=== PATIENT | male | born 1970 | race Caucasian/White ===

== ENCOUNTER → 2020-11-10 | Outpatient (CLI) | payer OTHER ==
[~2020-11-10] MED LIST: CEPH500 PO; HYDACE5 PO; Indomethacin50 MG PO; LISI10 PO; LISI20; LISI20 PO; MECL25 PO; PROP10 PO; PROP40; PROP40 PO
[2020-11-10 14:31] LABS: Alanine Aminotransfer (ALT/SGP 76 U/L (12-78); Albumin, Blood 3.8 g/dL (3.4-5.0); Alk Phos 44 U/L (50-136); Anion Gap 5 mmol/L (6-16); Aspartate Aminotrans (AST/SGOT 23 U/L (12-37); Bilirubin, Total 0.6 mg/dL (0.1-1.0); Blood Urea Nitrogen 15 mg/dL (8-24); Bun/Creatinine Ratio 13.5 (12.0-20.0); CO2, Blood 30 mmol/L (21-32); Calcium, Blood 9.6 mg/dL (8.5-10.1); Chloride, Blood 103 mmol/L (98-108); Creatinine, Blood 1.11 mg/dL (0.60-1.20); Globulin, Blood 3.7 g/dL (2.2-4.0); Glomerular Filtration Rate >60 (60-); Glucose, Blood 135 mg/dL (70-99); Potassium, Blood 4.4 mmol/L (3.5-5.5); Sodium, Blood 138 mmol/L (136-145); Total Protein, Blood 7.5 g/dL (6.4-8.2)
[2020-11-10 16:13] LABS: BASOPHILS ABSOLUTE AUTO 0.05 K/mm3 (0.00-0.23); BASOPHILS PERCENT AUTO 1 % (0-2); EOSINOPHILS ABSOLUTE AUTO 0.18 K/mm3 (0.00-0.68); EOSINOPHILS PERCENT AUTO 2 % (0-6); Hematocrit 45.5 % (37.0-53.0); Hemoglobin 16.4 g/dL (13.5-17.5); IMMATURE GRAN ABSOLUTE AUTO 0.02 K/mm3 (0.00-0.10); IMMATURE GRAN PERCENT AUTO 0 % (0-1); LYMPHOCYTES ABSOLUTE AUTO 2.39 K/mm3 (0.84-5.20); LYMPHOCYTES PERCENT AUTO 31 % (21-46); MONOCYTES ABSOLUTE AUTO 0.63 K/mm3 (0.16-1.47); MONOCYTES PERCENT AUTO 8 % (4-13); Mean Corpuscular HGB 32.3 pg (26.0-34.0); Mean Corpuscular Volume 90 fL (80-100); Mean Platelet Volume 9.1 fL (9.1-12.4); NEUTROPHILS ABSOLUTE AUTO 4.56 K/mm3 (1.96-9.15); NEUTROPHILS PERCENT AUTO 58 % (41-73); Platelet Count 309 K/mm3 (150-400); RDW Standard Deviation 39.2 fL (35.1-46.3); Red Blood Cell Count 5.08 M/mm3 (4.30-5.90); White Blood Cell Count 7.83 K/mm3 (4.00-11.30)
== END | disposition home or self-care (01) ==
LOC: LAB 14:12 → LAB SHORT 14:12
PROVIDERS: Family Medicine
DX: M54.2 Cervicalgia (principal); R59.0 Localized enlarged lymph nodes; R42 Dizziness and giddiness
CPT/HCPCS: 80053; 85025

== ENCOUNTER 2023-04-17 08:30 | Inpatient (IN) | payer BC, OTHER ==
[~2023-04-17] VITALS: Ht 177.8 cm; Wt 158.8 kg
[2023-04-17] MEDS ORDERED: Inderal80 MG PO (08:54)
[2023-04-17] MEDS ORDERED: Acetaminophen 500 MG Tab PO ONE (09:15)
[2023-04-17] MEDS ORDERED: Ketorolac Tromethamine 30mg Vial IV ONE (09:15)
[2023-04-17 09:18] LABS: BASOPHILS ABSOLUTE AUTO 0.06 K/mm3 (0.00-0.23); BASOPHILS PERCENT AUTO 1 % (0-2); EOSINOPHILS PERCENT AUTO 2 % (0-6); Hematocrit 43.6 % (37.0-53.0); Hemoglobin 15.8 g/dL (13.5-17.5); IMMATURE GRAN ABSOLUTE AUTO 0.02 K/mm3 (0.00-0.10); IMMATURE GRAN PERCENT AUTO 0 % (0-1); LYMPHOCYTES ABSOLUTE AUTO 2.53 K/mm3 (0.84-5.20); LYMPHOCYTES PERCENT AUTO 30 % (21-46); MONOCYTES ABSOLUTE AUTO 0.65 K/mm3 (0.16-1.47); MONOCYTES PERCENT AUTO 8 % (4-13); Mean Corpuscular HGB 31.9 pg (26.0-34.0); Mean Corpuscular HGB Conc 36.2 g/dL (31.5-36.5); Mean Corpuscular Volume 88 fL (80-100); Mean Platelet Volume 8.8 fL (9.1-12.4); NEUTROPHILS PERCENT AUTO 59 % (41-73); Platelet Count 280 K/mm3 (150-400); RDW Coefficient Variation 12.1 % (11.7-14.2); RDW Standard Deviation 38.3 fL (35.1-46.3); Red Blood Cell Count 4.95 M/mm3 (4.30-5.90); White Blood Cell Count 8.36 K/mm3 (4.00-11.30)
[2023-04-17] MEDS ORDERED: Methocarbamol 500 MG Tab PO ONE (09:20)
[2023-04-17 09:27] LABS: Magnesium, Blood 2.4 mg/dL (1.6-2.4)
[2023-04-17 09:28] LABS: Albumin, Blood 3.7 g/dL (3.4-5.0); Albumin/Globulin Ratio 1.1 (0.8-1.8); Bilirubin, Total 0.5 mg/dL (0.1-1.0); Globulin, Blood 3.5 g/dL (2.2-4.0); Potassium, Blood 4.3 mmol/L (3.5-5.5); Total Protein, Blood 7.2 g/dL (6.4-8.2)
[2023-04-17] MEDS ORDERED: Aspirin 325 MG Tab PO ONE (10:00)
[2023-04-17] MEDS ORDERED: Nitroglycerin 1 INCH/GM PKT TOP ONE (10:10)
[2023-04-17] MEDS ORDERED: Ondansetron HCl 2 MG / ML 2ML Vial IV PRN (10:55)
[2023-04-17] MEDS ORDERED: Acetaminophen 325 MG TABLET PO PRN (10:55)
[2023-04-17] MEDS ORDERED: FLU VACC QS2023-24(6MOS UP)/PF 60 MCG/0.5 ML SYRINGE IM PRN (11:00)
[2023-04-17] MEDS ORDERED: FentaNYL Citrate 50 MCG/ML 2 ML Injection IV PRN (11:00)
[2023-04-17 11:26] LABS: Anti-Xa UFH, PHA Monitoring <0.10 IU/mL; International Normalized Ratio 0.98; Prothrombin Time Results 10.3 Sec (9.7-11.5)
[2023-04-17] MEDS ORDERED: Heparin Sodium 5000 Units/ML 1ML MDV IV ONE ×2 (11:35→19:05)
[2023-04-17] MEDS ORDERED: Heparin Sodium,Porcine/0.5 NS 500 ML IV SCH (11:35)
[2023-04-17] MEDS ORDERED: Atorvastatin 40 MG Tab PO SCH (13:00)
[2023-04-17 13:27] VITALS: BP 156/96
--- NOTE | 2023-04-17 13:30 | NUR ---
ASSUMED CARE: PT ARRIVED FROM ED WITH HEPARIN GTT IN PLACE. DOSE CONFIRMED WITH SECOND NURSE AND ORDERS. PT WAS NSR ON TELE, DENIES CHEST PAIN BUT SOME PRESSURE. DR WEATHERS AWARE AND STATES PT NEEDS TO BE NPO AT [facility] FOR PROCEDURE WITH DR MARIE TOMORROW. FAMILY AT BEDSIDE. CALL LIGHT IN REACH.
[2023-04-17 15:35] VITALS: BP 135/88
--- NOTE | 2023-04-17 17:51 | NUR ---
SHIFT SUMMARY: PT STATES SOME CHEST PRESSURE BUT DENIES CHEST PAIN T/O DAY. HEPARIN GTT RUNNING. PLANS FOR CARDIAC CATH TOMORROW. FAMILY AT BEDSIDE TODAY AND HAVE BEEN UPDATED. NO ACUTE NEEDS OR CONCERNS AT THIS TIME.
[2023-04-17 19:33] VITALS: BP 130/93
[2023-04-17 23:39] VITALS: BP 120/79
[2023-04-18] VITALS (38 sets, daily range): BP systolic 97–201; BP diastolic 63–121
[2023-04-18] MEDS ORDERED: Nitroglycerin 1 INCH/GM PKT TOP PRN (01:00)
--- NOTE | 2023-04-18 01:34 | NUR ---
ASSUMPTION OF CARE AFTER RECEIVING REPORT FROM LANCE RN, THIS RN ASSUMED CARE AT APPROX 1915. DURING INITIAL ENCOUNTER, PATIENT ALERT, WATCHING TV IN BED. IS ALERT AND ORIENTED X4. COOPERATIVE WITH CARE, COMMUNICATES NEEDS EFFECTIVELY. TELEMETRY SHOWING SINUS 70s. BP STABLE. REPORTS INTERMITTENT CHEST PAIN, PRESSURE THAT IS NONRADIATING. AT APPROX 0030, PATIENT REPORTED INCREASED CHEST PAIN, PRESSURE, RADIATING FROM HIS CHEST UP TO L SIDE OF NECK. DESCRIBED "SIMILAR TO IN ER." MD BAIRD CONTACTED. ORDER IN PLACE FOR REPEAT EKG, TROPONIN LAB, AND NITRO PASTE. EKG AND LAB OBTAINED. NITRO PASTE APPLIED PER EMAR, PATIENT BEGINNING TO REPORT SOME RELIEF. IS ON ROOM AIR, SATs >90%. RESPIRATIONS EVEN, UNLABORED. IS INDEPENDENT WITH ADLs. CALLS FOR ASSIST NEEDED. CALL LIGHT IN REACH.
[2023-04-18] MEDS ORDERED: Dose Adjust by Pharmacy XX STA ×2 (01:45→20:38)
[2023-04-18] MEDS ORDERED: Heparin Sodium 5000 Units/ML 1ML MDV IV ONE (01:50)
[2023-04-18 01:52] LABS: Anion Gap 4 mmol/L (6-16); Blood Urea Nitrogen 11 mg/dL (8-24); Bun/Creatinine Ratio 10.1 (12.0-20.0); CHOL/HDL RATIO 6.5; CO2, Blood 28 mmol/L (21-32); Calcium, Blood 8.8 mg/dL (8.5-10.1); Chloride, Blood 105 mmol/L (98-108); Cholesterol 189 mg/dL (50-200); Creatinine, Blood 1.09 mg/dL (0.60-1.20); Glomerular Filtration Rate 82 (60-); Glucose, Blood 166 mg/dL (70-99); HDL Cholesterol 29 mg/dL (>39); LDL/HDL RATIO 2.8; Low Density Lipoprotein Chol 82 mg/dL (0-110); Potassium, Blood 3.8 mmol/L (3.5-5.5); Sodium, Blood 137 mmol/L (136-145); Triglycerides 391 mg/dL (30-160); Very Low Density Lipoprot Chol 78 mg/dL (6-32)
--- NOTE | 2023-04-18 05:19 | NUR ---
SHIFT SUMMARY: NO ACUTE CHANGES SINCE ASSUMPTION OF CARE NOTE. TELEMETRY SHOWING SINUS 60s. BP STABLE, SBP 120s-130s. NO FURTHER EPISODES OF INCREASED CHEST PAIN, PRESSURE (SEE PREVIOUS NOTE) WITH ADMINISTERED NITRO PASTE. HEPARIN GTT INFUSING PER EMAR. NPO SINCE MIDNIGHT FOR ANGIOGRAM TODAY. PLACED ON 2L VIA NASAL CANNULA FOR COMFORT. TOLERATING ROOM AIR, SATs >90%. RESPIRATIONS EVEN, UNLABORED. INDEPENDENT IN ROOM, WITH ADLs. VOIDING. NO BM THIS SHIFT. CALL LIGHT IN REACH.
[2023-04-18] MEDS ORDERED: Pantoprazole Sodium 20 MG Tab PO SCH (06:00)
[2023-04-18] MEDS ORDERED: Heparin Sodium 1000 Units/ML 10ML MDV ONE ×3 (06:26→07:47)
[2023-04-18] MEDS ORDERED: NS 250 ML IV ONE (06:26)
[2023-04-18] MEDS ORDERED: NS 1,000 ML IV ONE ×2 (06:26→06:44)
[2023-04-18] MEDS ORDERED: NiCARdipine HCL 1,000 MCG/5 ML SYR ONE (06:27)
[2023-04-18] MEDS ORDERED: Nitroglycerin 2 MG/20 ML BTL ONE (06:27)
--- NOTE | 2023-04-18 06:37 | NUR ---
PATIENT TRANSFERRED OFF UNIT VIA BED FOR SCHEDULED ANGIOGRAM
[2023-04-18] MEDS ORDERED: Midazolam HCl 1MG / ML 2ML Vial ONE ×3 (06:44→07:50)
[2023-04-18] MEDS ORDERED: FentaNYL Citrate 50 MCG/ML 2 ML Injection ONE ×2 (06:44→07:50)
[2023-04-18] MEDS ORDERED: Aspirin 81 MG Chew ONE (06:53)
[2023-04-18] MEDS ORDERED: Ticagrelor 90 MG TABLET ONE (07:24)
--- NOTE | 2023-04-18 08:25 | NUR ---
PT ARRIVES TO ICU 1 FROM [facility] AFTER PCI. PT IS A/O X4. DENIES CP OR PRESSURE, SOB, N/V. PT IS ON NITRO GTT AT 30MCG/MIN. TR BAND TO R RADIAL SITE INFLATED, STABLE, NO SIGN OF HEMATOMA OR BLEEDING. PALPABLE RADIAL PULSE DISTAL AND SPO2 PROBE TO R INDEX FINGER WITH SPO2 GREAT THAN 90% AND GOOD PLETH. NO SIGN OF DISTESS.
[2023-04-18] MEDS ORDERED: Aspirin 81 MG Chew PO SCH (09:00)
[2023-04-18] MEDS ORDERED: Lisinopril 20 MG Tab PO SCH (13:10)
[2023-04-18] MEDS ORDERED: Propranolol HCL 20 MG TAB PO SCH (13:15)
--- NOTE | 2023-04-18 18:30 | NUR ---
SUMMARY HAD TITRATED NITRO GTT OFF AT 1130. ABOUT AN HOUR LATER PT STATES "I JUST DON'T FEEL GOOD." STATES HE FELT DIZZY AND FLUSHED. TURNED NITRO BACK ON AND SPOKE WITH DR. MARIE. DR. MARIE ORDERED PROPRANOLOL AND LISINOPRIL. AN HOUR AFTER THOSE WERE GIVEN THE NITRO GTT WAS STOPPED. PT HAS NOT HAD ANOTHER EPISODE OF DIZZINESS OR FLUSHING. NOW STATING HE FEELS MUCH BETTER. PT HAS BEEN OOB TO CHAIR WITHOUT ANY ISSUE. TR BAND TO R RADIAL SLOWLY DEFLATED WITHOUT ISSUE AND NOW HAS CLEAR OCCLUSIVE DRESSING AND ARM BOARD. SITE IS STABLE. ON HEPARIN GTT PER DR. MARIE.
[2023-04-18] MEDS ORDERED: Ticagrelor 90 MG TABLET PO SCH (20:00)
--- NOTE | 2023-04-18 20:59 | NUR ---
INITIAL NOTE Report received, discussed cardiac concerns with patient regarding stent placed, and prognosis with LAD/L circ concerns patient had, Nitro gtt off earlier, Heparin gtt remains in place, patient also verbalizes 0/10 pain at present down from 8/10 prior to stent placement/nitro/oral meds (Propranolol, Lisinopril). Denies concerns otherwise as well, a/o, assessment performed, recently adjusted Heparin, given Brilinta, explained difference in blood thinners, use. VS stable, placed cuff to right calf per request as it goes off every hour. Call light in reach, blankets brought, lights off, door closed for comfort, denies needs.
[2023-04-19] VITALS (9 sets, daily range): BP systolic 132–169; BP diastolic 78–114
[2023-04-19 03:40] LABS: Hematocrit 39.3 % (37.0-53.0); Hemoglobin 14.3 g/dL (13.5-17.5); Mean Corpuscular HGB 32.5 pg (26.0-34.0); Mean Corpuscular HGB Conc 36.4 g/dL (31.5-36.5); Mean Corpuscular Volume 89 fL (80-100); Mean Platelet Volume 8.7 fL (9.1-12.4); Platelet Count 210 K/mm3 (150-400); RDW Coefficient Variation 12.1 % (11.7-14.2); RDW Standard Deviation 39.3 fL (35.1-46.3); White Blood Cell Count 8.85 K/mm3 (4.00-11.30)
[2023-04-19 04:04] LABS: Bun/Creatinine Ratio 9.8 (12.0-20.0); Calcium, Blood 8.8 mg/dL (8.5-10.1); Creatinine, Blood 1.02 mg/dL (0.60-1.20); Potassium, Blood 3.9 mmol/L (3.5-5.5)
[2023-04-19] MEDS ORDERED: Dose Adjust by Pharmacy XX STA (04:07)
--- NOTE | 2023-04-19 05:45 | NUR ---
SHIFT SUMMARY Patient remained stable with radial site remaining intact, voided earlier and denied needs, no acute concerns. Heparin gtt increased earlier, noted Xa. No additional concerns with VS, monitored BP, initially changed to calf due to patient request, but later changed back to wrist due to accuracy of BP. Call light in reach, no chest pain overnight.
[2023-04-19] MEDS ORDERED: Empagliflozin 10 MG TAB PO SCH (09:00)
[2023-04-19] MEDS ORDERED: Lisinopril 20 MG Tab PO SCH (09:00)
[2023-04-19] MEDS ORDERED: LISI20 PO (09:11)
[2023-04-19] MEDS ORDERED: ASPI81CH PO (09:11)
[2023-04-19] MEDS ORDERED: ATOR40TA PO (09:12)
[2023-04-19] MEDS ORDERED: TICA90TA PO (09:16)
[2023-04-19] MEDS ORDERED: JARDIANCE10 MG PO (09:16)
--- NOTE | 2023-04-19 09:44 | NUR ---
DISCHARGE PT AWAKE, ALERT, AND ORIENTED. PT HAS DENIED CHEST PAIN OR DISCOMFORT. PT OK FOR DISCHARGE PER DR WEATHERS. PT VERBALIZED UNDERSTANDING OF ALL DISCHARGE INSTRUCTIONS AND FOLLOW UP APPOINTMENTS. ALL PT BELONGS SENT WITH PT. PT WALKED OUT OF ICU AT 0940.
== END 2023-04-19 09:40 | disposition home or self-care (01) | DRG 322 ==
LOC: ER 08:30 → PCU 08:31 → ICUE 08:31 → PCU 08:31 → ICUE 04-18 08:39
PROVIDERS: Student in an Organized Health Care Education/Training Program; ADMIT Internal Medicine
PROC: 027034Z Dilation of Coronary Artery, One Artery with Drug-eluting Intraluminal Device, Percutaneous Approach (ICD-10-PCS; principal; 2023-04-18)
PROC: 4A023N7 Measurement of Cardiac Sampling and Pressure, Left Heart, Percutaneous Approach (ICD-10-PCS; 2023-04-18)
PROC: B2111ZZ Fluoroscopy of Multiple Coronary Arteries using Low Osmolar Contrast (ICD-10-PCS; 2023-04-18)
PROC: B2151ZZ Fluoroscopy of Left Heart using Low Osmolar Contrast (ICD-10-PCS; 2023-04-18)
PROC: B24BZZ3 Ultrasonography of Heart with Aorta, Intravascular (ICD-10-PCS; 2023-04-18)
DX: I21.4 Non-ST elevation (NSTEMI) myocardial infarction (principal); Z68.42 Body mass index [BMI] 45.0-49.9, adult; I10 Essential (primary) hypertension; N26.1 Atrophy of kidney (terminal); F17.220 Nicotine dependence, chewing tobacco, uncomplicated; M62.838 Other muscle spasm; E78.5 Hyperlipidemia, unspecified; M54.9 Dorsalgia, unspecified; M10.9 Gout, unspecified; F10.20 Alcohol dependence, uncomplicated; E66.01 Morbid (severe) obesity due to excess calories; I25.10 Atherosclerotic heart disease of native coronary artery without angina pectoris; E11.65 Type 2 diabetes mellitus with hyperglycemia; Z98.52 Vasectomy status; Z90.89 Acquired absence of other organs; Z98.890 Other specified postprocedural states; Z86.010 Personal history of colon polyps; Z71.51 Drug abuse counseling and surveillance of drug abuser; Z79.899 Other long term (current) drug therapy
CPT/HCPCS: 36415; 71046; 76937; 80048; 80053; 80061; 83036; 83735; 84484; 85025; 85027; 85347; 85520; 85610; 85730; 93005; 93010; 93454; 94762; 96365; 96375; 99152; 99153; 99285-25; A9270; C1725; C1769; C1874; C1887; C1894; C8929; C9113; C9600; J1644; J1885; J2250; J2405; J3010; J7030; J7050; Q9957; Q9967

== ENCOUNTER → 2023-11-30 | Outpatient (CLI) | payer BC ==
[~2023-11-30] MED LIST changes: +ASPI81CH PO; +ATOR40TA PO; +Inderal80 MG PO; +JARDIANCE10 MG PO; +TICA90TA PO
== END | disposition home or self-care (01) ==
LOC: LAB SHORT 12:45 → LAB 12:45
DX: T81.49XA Infection following a procedure, other surgical site, initial encounter (principal)
CPT/HCPCS: 87070; 87205

== ENCOUNTER → 2023-12-12 | Outpatient (CLI) | payer BC, OTHER ==
[2023-12-12 18:17] LABS: Source, Urine Voided
[2023-12-12 19:21] LABS: Appearance, Urine Clear (Clear); Bilirubin, Urine Neg (Neg); Blood, Urine 5+ (Neg); Color, Urine Yellow (P-Yellow); Glucose Qualitative, Urine 4+ (Neg); Ketones, Urine Neg (Neg); Leukocyte Esterase, Urine Neg (Neg); Nitrite, Urine Neg (Neg); Protein, Urine Neg (Neg); Urobilinogen, Urine NORM (Normal)
[2023-12-12 19:40] LABS: Bacteria Few /hpf; Red Blood Cells, Urine 25-50 /hpf (0-2); Squamous Epithelial Cells Rare /hpf (Few); White Blood Cells, Urine 0-2 /hpf (0-5)
== END | disposition home or self-care (01) ==
LOC: LAB 18:15 → LAB SHORT 18:15
PROVIDERS: Nurse Practitioner Family
DX: R31.29 Other microscopic hematuria (principal)
CPT/HCPCS: 81001

== ENCOUNTER → 2025-01-22 | Outpatient (CLI) | payer OTHER ==
[~2025-01-22] MED LIST changes: +ALBU90OI INH; +AMLODIPINE BES2.5 MG PO; +CARVEDILOL6.25 MG PO; +EZETIMIBE10 M6 PO; +Lisinopril10 MG PO; +PLAVIX75 MG PO
== END ==
LOC: LAB SHORT 18:34 → LAB 18:34
DX: J02.9 Acute pharyngitis, unspecified (principal)
CPT/HCPCS: 87081

== ENCOUNTER 2025-02-01 07:51 | Emergency (ER) | payer OTHER ==
[~2025-02-01] VITALS: Ht 177.8 cm; Wt 149.7 kg
[2025-02-01 09:16] LABS: BASOPHILS ABSOLUTE AUTO 0.06 K/mm3 (0.00-0.23); BASOPHILS PERCENT AUTO 1 % (0-2); EOSINOPHILS ABSOLUTE AUTO 0.24 K/mm3 (0.00-0.68); EOSINOPHILS PERCENT AUTO 3 % (0-6); Hematocrit 39.6 % (37.0-53.0); Hemoglobin 14.2 g/dL (13.5-17.5); IMMATURE GRAN ABSOLUTE AUTO 0.02 K/mm3 (0.00-0.10); IMMATURE GRAN PERCENT AUTO 0 % (0-1); LYMPHOCYTES ABSOLUTE AUTO 1.82 K/mm3 (0.84-5.20); LYMPHOCYTES PERCENT AUTO 19 % (21-46); MONOCYTES ABSOLUTE AUTO 0.70 K/mm3 (0.16-1.47); MONOCYTES PERCENT AUTO 7 % (4-13); Mean Corpuscular HGB Conc 35.9 g/dL (31.5-36.5); Mean Corpuscular Volume 85 fL (80-100); NEUTROPHILS ABSOLUTE AUTO 6.74 K/mm3 (1.96-9.15); NEUTROPHILS PERCENT AUTO 70 % (41-73); NRBC ABSOLUTE 0.00 K/mm3 (0.00-0.02); NRBC Auto 0.0 /100 WBC (0.0-0.2); RDW Coefficient Variation 12.1 % (11.7-14.2); RDW Standard Deviation 37.5 fL (35.1-46.3)
[2025-02-01 09:45] LABS: Platelet Count 271 K/mm3 (150-400)
[2025-02-01] MEDS ORDERED: Amoxicillin500 M1 PO (11:11)
[2025-02-01 11:30] VITALS: BP 142/117
== END 2025-02-01 11:33 | disposition home or self-care (01) ==
LOC: ER 07:51
PROVIDERS: Physician Assistant
DX: J02.0 Streptococcal pharyngitis (principal); R22.1 Localized swelling, mass and lump, neck; I10 Essential (primary) hypertension; I25.2 Old myocardial infarction; I25.10 Atherosclerotic heart disease of native coronary artery without angina pectoris; F17.220 Nicotine dependence, chewing tobacco, uncomplicated; Z79.02 Long term (current) use of antithrombotics/antiplatelets; Z79.82 Long term (current) use of aspirin; Z79.899 Other long term (current) drug therapy
CPT/HCPCS: 76536; 85025; 87430; A9270